=== PATIENT | female | born 1935 | race Caucasian/White ===

== ENCOUNTER → 2019-12-19 | Outpatient (CLI) | payer MEDICARE, BC ==
--- NOTE | 2019-12-19 14:21 | RAD ---
EXAM: Neck sonogram. HISTORY: Neck mass. TECHNIQUE: Sonographic imaging of the neck at the site of palpable concern was performed. COMPARISON: None. FINDINGS: There is a small solid nodule at the site of palpable concern within the base of the right neck measuring 1.6 cm in maximum dimension. There is a prominent adjacent vessel, without convincing internal blood flow. There is isoechoic to fat. This corresponds with the site of palpable concern. IMPRESSION: 1.6 cm solid lesion within the base of the right neck at the site of palpable concern, the appearance of which favors a fat lobule or lipoma. Given suspected artifactual blood flow within this lesion, short-term follow-up with a sonogram in 3 months is recommended confirm stability. Continued clinical follow-up is also recommended. Electronically signed by: Joanne Rowan MD (12/19/2019 2:18 PM) [id number]
== END ==
LOC: US 13:37
PROVIDERS: ATTEND Family Medicine
DX: R22.1 Localized swelling, mass and lump, neck (principal)
CPT/HCPCS: 76536

== ENCOUNTER 2020-08-09 15:45 | Emergency (ER) | payer MEDICARE, BC ==
[~2020-08-09] VITALS: Ht 154.9 cm; Wt 64.0 kg
[2020-08-09] MEDS ORDERED: IOHEXOL 350 MG/ML 100 ML VIAL. IV ONE ×2 (16:45→17:30)
[2020-08-09] MEDS ORDERED: IPRATRPIUM/ALBUTEROL 0.5/2.5MG 3 ML NEBU. NEB ONE (17:00)
[2020-08-09 17:14] LABS: BASO # 0.1 x10^3/uL (0.0-0.2); BASO % 1 % (0-3); EOS # 0.3 x10^3/uL (0.0-0.7); EOS % 3 % (0-3); HEMATOCRIT 33.3 % (36.0-47.0); HEMOGLOBIN 11.2 g/dL (12.0-15.5); LYMPH # 1.8 x10^3/uL (1.0-4.8); LYMPH % 17 % (24-48); MEAN CORPUSCULAR HEMOGLOBIN 29 pg (25-35); MEAN CORPUSCULAR HGB CONC 34 g/dL (31-37); MEAN CORPUSCULAR VOLUME 87 fL (79-100); MONO % 9 % (0-9); NEUT # 7.2 x10^3uL (1.8-7.7); NEUT % 70 % (31-73); PLATELET COUNT 325 x10^3/uL (140-400); RED BLOOD COUNT 3.82 x10^6/uL (3.50-5.40); RED CELL DISTRIBUTION WIDTH 13.8 % (11.5-14.5); WHITE BLOOD COUNT 10.3 x10^3/uL (4.0-11.0)
[2020-08-09 17:41] LABS: ALBUMIN 3.9 g/dL (3.4-5.0); ALBUMIN/GLOBULIN RATIO 1.1 (1.0-1.7); CALCIUM 9.9 mg/dL (8.5-10.1); CREATININE 0.8 mg/dL (0.6-1.0); GFR 68.2; MAGNESIUM 2.3 mg/dL (1.8-2.4); PHOSPHORUS 3.5 mg/dL (2.6-4.7); POTASSIUM 4.7 mmol/L (3.5-5.1); TOTAL BILIRUBIN 0.4 mg/dL (0.2-1.0); TOTAL PROTEIN 7.4 g/dL (6.4-8.2)
--- NOTE | 2020-08-09 19:02 | RAD ---
CTA CHEST INDICATION: HAEMOPTYSIS WITH BRONCHIECTASIS HX Comparison: None. TECHNIQUE: Following the uneventful administration of intravenous contrast, 100 cc Omnipaque 350, axi al CT sections were obtained through the lungs and upper abdomen. Multiplanar reconstructions and MIP images were obtained. PQRS compliance statement: One or more of the following individualized dose reduction techniques were utilized for this examinat ion: 1. Automated exposure control 2. Adjustment of the mA and/or kV according to patient size 3. Use of iterative reconstruction technique FINDINGS: Pulmonary arteries: No evidence of pulmonary thromboembolic disease Lungs and Airways: Bilateral tree-in-bud opacities. Middle lobe and lingular predominant bronchiectas is and volume loss. Scattered endobronchial mucous plugging. Small right Bochdalek hernia. Pleura: The pleural spaces are normal. Heart and Mediastinum: The visualized thyroid is normal in size and attenuation. No axillary or supra clavicular lymphadenopathy. No mediastinal, hilar or retrocrural lymphadenopathy. Cardiomegaly. No pe ricardial effusion. Coronary artery atherosclerotic disease. Atherosclerosis of the thoracic aorta an d branch. Abdomen: Calcified splenic granulomas. Low-attenuation hepatic foci, probably cysts. Bones and Soft Tissues: Degenerative changes of the spine. IMPRESSION: 1. No evidence of pulmonary thromboembolic disease. 2. Bilateral tree-in-bud opacities with middle lobe and lingular predominant bronchiectasis, volume l oss, an endobronchial mucous plugging. Findings are consistent with infectious bronchiolitis, and con sideration should be given to chronic atypical mycobacterial infection. Electronically signed by: Temo Lovell MD (08/09/2020 7:00 PM) [facility]
--- NOTE | 2020-08-09 20:32 | PHYS DOC ---
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 Lyndsay Martines sent her here for evaluation of blood in her sputum that she noticed earlier today x5. Patient states that her sputum is clear with streaks of blood reporting approximately a half a teaspoon total blood was expelled. Patient states she has a long history of bronchiectasis and congestive heart failure with COPD. Patient reports seeing a operations research manager at [facility]. Patient reports wearing a vest device at home that shakes her chest vigorously to assist bringing up respiratory secr etions. Patient also reports she had a CT scan a year ago in which a spot was noticed in her lung and it was recommended that she have a repeat CT in 1 year. Patient denies any new symptoms of chest pain, shortness of breath, fever or chills, numbness or tingling, dizziness or headaches or syncopal episodes. Patient denies any other physical complaints or physical concerns. Patient states that she is only here stating that her physician is worried her sodium might be high as that she is being treated for hyponatremia for the past 2 weeks. Patient denies any other medication changes. (RIGO CLAYTON APRN) Review of Systems Review of Systems 14 body systems of review of systems have been reviewed. See HPI for pertinent positives and negative responses, otherwise all other systems are negative, nonpertinent or noncontributory. (RIGO CLAYTON APRN) Current Medications Current Medications Current Medications Medications (Trade) Dose Ordered Sig/Aidan Start Time Stop Time Status Last Admin Dose Admin Albuterol/ Ipratropium (Duoneb) 3 ml 1X ONCE 08/09/20 17:00 08/09/20 17:01 DC 08/09/20 17:24 3 ML Iohexol (Omnipaque 350 Mg/ml) 100 ml 1X ONCE 08/09/20 17:30 08/09/20 17:31 DC (RIGO CLAYTNO APRN) Allergies Allergies Allergies Coded Allergies Type Severity Reaction Last Updated Verified Sulfa (Sulfonamide Antibiotics) Allergy Intermediate 08/09/20 Yes scopolamine Allergy Unknown 08/09/20 Yes (RIGO CLAYTON APRN) Physical Exam Physical Exam Constitutional: Well developed, well nourished, no acute distress, non-toxic appearance. 85-year-old female in no apparent distress. HENT: Normocephalic, atraumatic, bilateral external ears normal, oropharynx moist, no oral exudates, nose normal. Oropharynx moist, pink, no postnasal drip appreciated, no blood in the oral cavity appreciated. Bilateral TMs within normal limits. No trauma appreciated. Eyes: Conjunctiva normal, no discharge. Neck: Normal range of motion. Cardiovascular:Heart rate regular rhythm, no murmur. Lungs & Thorax: Bilateral breath sounds clear to auscultation bilateral inspiratory expiratory wheezing to auscultation. Abdomen: Bowel sounds normal, soft, no tenderness, no masses, no pulsatile masses. Skin: Warm, dry, no erythema, no rash. Back: No tenderness, no CVA tenderness. Extremities: No tenderness, no cyanosis, no clubbing, ROM intact, no edema. Neurologic: Alert and oriented X 3, normal motor function, normal sensory function, no focal deficits noted. Psychologic: Affect normal, judgement normal, mood normal. (RIGO CLAYTON APRN) Current Patient Data Vital Signs Vital Signs Date Time Temp Pulse Resp B/P (MAP) Pulse Ox O2 Delivery O2 Flow Rate FiO2 08/09/20 18:00 57 16 185/59 (101) 98 Room Air 08/09/20 15:51 98.6 Lab Results Laboratory Tests Test 08/09/20 16:36 White Blood Count 10.3 x10^3/uL (4.0-11.0) Red Blood Count 3.82 x10^6/uL (3.50-5.40) Hemoglobin 11.2 g/dL (12.0-15.5) L Hematocrit 33.3 % (36.0-47.0) L Mean Corpuscular Volume 87 fL (79-100) Mean Corpuscular Hemoglobin 29 pg (25-35) Mean Corpuscular Hemoglobin Concent 34 g/dL (31-37) Red Cell Distribution Width 13.8 % (11.5-14.5) Platelet Count 325 x10^3/uL (140-400) Neutrophils (%) (Auto) 70 % (31-73) Lymphocytes (%) (Auto) 17 % (24-48) L Monocytes (%) (Auto) 9 % (0-9) Eosinophils (%) (Auto) 3 % (0-3) Basophils (%) (Auto) 1 % (0-3) Neutrophils # (Auto) 7.2 x10^3uL (1.8-7.7) Lymphocytes # (Auto) 1.8 x10^3/uL (1.0-4.8) Monocytes # (Auto) 1.0 x10^3/uL (0.0-1.1) Eosinophils # (Auto) 0.3 x10^3/uL (0.0-0.7) Basophils # (Auto) 0.1 x10^3/uL (0.0-0.2) Sodium Level 133 mmol/L (136-145) L Potassium Level 4.7 mmol/L (3.5-5.1) Chloride Level 100 mmol/L (98-107) Carbon Dioxide Level 24 mmol/L (21-32) Anion Gap 9 (6-14) Blood Urea Nitrogen 19 mg/dL (7-20) Creatinine 0.8 mg/dL (0.6-1.0) Estimated GFR (Cockcroft-Gault) 68.2 BUN/Creatinine Ratio 24 (6-20) H Glucose Level 96 mg/dL (70-99) Calcium Level 9.9 mg/dL (8.5-10.1) Phosphorus Level 3.5 mg/dL (2.6-4.7) Magnesium Level 2.3 mg/dL (1.8-2.4) Total Bilirubin 0.4 mg/dL (0.2-1.0) Aspartate Amino Transferase (AST) 18 U/L (15-37) Alanine Aminotransferase (ALT) 21 U/L (14-59) Alkaline Phosphatase 119 U/L (46-116) H Troponin I Quantitative < 0.017 ng/mL (0-0.055) CI-Btl-F-Type Natriuretic Peptide 710 pg/mL (0-449) H Total Protein 7.4 g/dL (6.4-8.2) Albumin 3.9 g/dL (3.4-5.0) Albumin/Globulin Ratio 1.1 (1.0-1.7) (RIGO CLAYTON APRN) EKG EKG EKG performed at 1716 by ED nursing staff, shows a normal sinus rhythm with a left axis deviation and a left bundle branch block, no STEMI appreciated, ruled out by SGARBOSSA criteria, intervertebral 0.184, QTc interval 0.423, no ACS, no acute ischemia appreciated, EKG interpreted by ED attending physician Dr. Romo. (RIGO CLAYTON APRN) Radiology/Procedures Radiology/Procedures PATIENT: REDD JENNINGS AACCOUNT: [id number] : 1935 LOCATION: ER AGE: 85 SEX: F EXAM STATUS: REG ER ORD. PHYSICIAN: RIGO CLAYTON APRN REASON: HAEMOPTYSIS WITH BRONCHIECTASIS HX Omni 350 100cc PROCEDURE: CT ANGIOGRAPHY CHEST CTA CHEST INDICATION: HAEMOPTYSIS WITH BRONCHIECTASIS HX Comparison: None. TECHNIQUE: Following the uneventful administration of intravenous contrast, 100 cc Omnipaque 350, axial CT sections were obtained through the lungs and upper abdomen. Multiplanar reconstructions and MIP images were obtained. PQRS compliance statement: One or more of the following individualized dose reduction techniques were utilized for this examination: 1. Automated exposure control 2. Adjustment of the mA and/or kV according to patient size 3. Use of iterative reconstruction technique FINDINGS: Pulmonary arteries: No evidence of pulmonary thromboembolic disease Lungs and Airways: Bilateral tree-in-bud opacities. Middle lobe and lingular predominant bronchiectasis and volume loss. Scattered endobronchial mucous plugging. Small right Bochdalek hernia. Pleura: The pleural spaces are normal. Heart and Mediastinum: The visualized thyroid is normal in size and attenuation. No axillary or supraclavicular lymphadenopathy. No mediastinal, hilar or retrocrural lymphadenopathy. Cardiomegaly. No pericardial effusion. Coronary artery atherosclerotic disease. Atherosclerosis of the thoracic aorta and branch. Abdomen: Calcified splenic granulomas. Low-attenuation hepatic foci, probably cysts. Bones and Soft Tissues: Degenerative changes of the spine. IMPRESSION: 1. No evidence of pulmonary thromboembolic disease. 2. Bilateral tree-in-bud opacities with middle lobe and lingular predominant bronchiectasis, volume loss, an endobronchial mucous plugging. Findings are consistent with infectious bronchiolitis, and consideration should be given to chronic atypical mycobacterial infection. Electronically signed by: Mercedes Lovell MD (08/09/2020 7:00 PM) [facility] DICTATED AND SIGNED BY: MERCEDES LOVELL MD DATE: 08/09/201852 CC: RIGO CLAYTON APRN; BASSAM ROMO DO; ANDRESLYNDSAY ~MTH0 0 (RIGO CLAYTON APRN) Heart Score C/O Chest Pain: No Risk Factors: Risk Factors: DM, Current or recent (<one month) smoker, HTN, HLP, family history of CAD, obesity. Risk Scores: Risk Factors: DM, Current or recent (<one month) smoker, HTN, HLP, family history of CAD, obesity. (RIGO CLAYTON APRN) Course & Med Decision Making Course & Med Decision Making Pertinent Labs and Imaging studies reviewed. (See chart for details) 85-year-old female, vital signs reviewed, presents emergency department reporting noticing blood in her sputum today. Patient's physical examination was consistent with her history of bronchiectasis and COPD. Related to andrey samuels's chief complaint of seen a spot in her lung per CT last year, will order CT angio chest. EKG, cardiopulmonary work-up. Patient is in no respiratory distress however she does have expiratory expiratory wheezes, patient states she has this all the time and usually feels better after a breathing treatment. Patient states that she does not feel as if she needs a breathing treatment however states that she would accept it if ordered. An RAHEEL treatment was ordered. CT angio chest consistent with patient's history of bronchiectasis. Patient is being closely followed and treated at home with a vest device to assist with bronchial secretion plugs, and taking Zithromax every other day for the past year. Upon reevaluation of the patient, patient states that she has coughed up sputum several times it has been clear and has not noticed any blood in it. Patient states that she does not feel ill and states she would have not come to the emergency department had her doctor not been concerned of hypernatremia. D iscussed with patient's labs, patient is not hyponatremic, patient states she is relieved and wishes to go home now. Discussed with patient strict return to ER precautions related to blood in sputum, patient states that she does get blood in her sputum intermittently and associates this with her long history of bronchiectasis and COPD. Patient states she does not feel as if she is in a COPD exacerbation, and does not feel that she is ill enough to warrant an admission to the hospital. Discussed with patient strict follow-up with primary care physician Wednesday for reevaluation of her hemoptysis. Patient remained nontoxic and in no distress during her ER stay. The patient feels comfortable going home. Patient is stable for discharge. Patient gave verbal understanding of discharge home instructions, follow-up with PCP on Wednesday, return ER precautions or concerns, patient was discharged home without incident. (RIGO CLAYTON APRN) Course & Med Decision Making I oversaw on the above date of service of this patient. This patient was evaluated, examined, treated, and dispositioned from the emergency department by the mid-level practitioner. Although I was working at the time and available for consultation, no assistance was requested and I did not see or immediately direct the care of this patient. I reviewed note and agree to findings, plan of care, and disposition as stated. Electronically signed, Bassam Romo DO (BASSAM ROMO DO) Shabana Disclaimer Dragwendy Disclaimer This electronic medical record was generated, in whole or in part, using a voice recognition dictation system. (RIGO CLAYTON APRN) Departure Departure: Impression: Primary Impression: Bronchiectasis Additional Impression: Cough with hemoptysis Disposition: HOME / SELF CARE / HOMELESS Condition: GOOD Referrals: LYNDSAY MARTINES (PCP) Additional Instructions: You were seen today in the emergency department for coughing up sputum with a small amount of blood. Your primary care physician was worried you may have a high sodium level as she has been treating your low sodium level at home. A CT angio chest was performed to evaluate your bronchiectasis and congestive heart failure history. Your lab work did not show any concerning findings, your CT imaging of your chest did not show any findings that were concerning related to your long history of COPD and bronchiectasis. I discussed with you admission to the hospital, you and I made a joint decision to defer admission to the hospital related to you feeling better, you are not running a fever, you do not feel any more ill than normal, you did cough up some sputum during your ER stay that did not have any blood in it. I suspect this may be an ongoing problem related to your chronic bronchiectasis and COPD. Please continue taking your home medications as directed by your primary care provider and your operations research manager, please follow-up with your Dr. Martines this Wednesday. Please return immediately to the emergency department for worsening symptoms or other concerns. EMERGENCY DEPARTMENT GENERAL DISCHARGE INSTRUCTIONS Thank you for coming to [facility] (ED) today and trusting us with you care. We trust that you had a positivie experience in our Emergency Department. If you wish to speak to the department management, you may call the director at [phone]. YOUR FOLLOW UP INSTRUCTIONS ARE FOLLOWS: 1. Do you have a private Doctor? If you do not have a private doctor, please ask for a resource list of physicians or clinics that may be able to assist you with follow up care. 2. The Emergency Physician has interpreted your x-rays. The X-Ray specialist will also review them. If there is a change in the findings, you will be notified in 48 hours when at all possible. 3. A lab test or culture has been done, your results will be reviewed and you will be notified if you need a change in treatment. ADDITIONAL INSTRUCTIONS AND INFORMATION: 1. Your care today has been supervised by a physician who is specially trained in emergency care. Many problems require more than one evaluation for a complete diagnosis and treatment. We recommend that you schedule your follow up appointment as recommended to ensure complete treatment of you illness or injury. If you are unable to obtain follow up care and continue to have a problem, or if your condition worsens, we recommend that you return to the ED. 2. We are not able to safely determine your condition over the phone nor are we able to give sound medical advice over the phone. For these safety reasons, if you call for medical advice we will ask you to come to the ED for further evaluation. 3. If you have any questions regarding these discharge instructions please call the ED at [phone]. SAFETY INFORMATION: In the interest of safety, wellness, and injury prevention; we encourage you to wear your sealbelt, if you smoke; quite smoking, and we encourage family to use a protective helmet for bicycling and other sporting events that present an increased risk for head injury. IF YOUR SYMPTOMS WORSEN OR NEW SYMPTOMS DEVELOP, OR YOU HAVE CONCERNS ABOUT YOUR CONDITION; OR IF YOUR CONDITION WORSENS WHILE YOU ARE WAITING FOR YOUR FOLLOW UP APPOINTMENT; EITHER CONTACT YOUR PRIMARY CARE DOCTOR, THE PHYSICIAN WHOSE NAME AND NUMBER YOU WERE GIVEN, OR RETURN TO THE ED IMMEDIATELY. Problem Qualifiers Primary Impression: Bronchiectasis Bronchiectasis type: uncomplicated Qualified Codes: J47.9 - Bronchi ectasis, uncomplicated RIGO CLAYTON APRN Aug 09, 2020 20:32 BASSAM ROMO DO Aug 10, 2020 08:37
[2020-08-09 20:40] VITALS: BP 158/63
--- NOTE | 2020-08-09 22:22 | EKG ---
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
== END 2020-08-09 20:40 | disposition home or self-care (01) ==
LOC: ER 15:45
DX: J47.9 Bronchiectasis, uncomplicated (principal); R04.2 Hemoptysis; Z88.2 Allergy status to sulfonamides
CPT/HCPCS: 36415; 71275; 80053; 83735; 83880; 84100; 84484; 85025; 93005; 94640; 94760; 99285; Q9967

== ENCOUNTER → 2020-08-15 | Outpatient (CLI) | payer MEDICARE, BC ==
[2020-08-09 20:40] VITALS: BP 158/63
--- NOTE | 2020-08-15 12:23 | RAD ---
EXAM: DUAL ENERGY X-RAY ABSORPTIOMETRY (DEXA). HISTORY: Postmenopausal screening. FINDINGS: The lowest measured T-score is -3.0 in the lumbar spine, based on a bone mineral density of 0.8-0 g/cm^2. Refer to the worksheets for full detail. No comparison examinations are available. IMPRESSION: 1. Osteoporosis. Bone mineral density yields a T-score of -2.5 or less. Fracture risk is high. 2. FRAX report: Not calculated. METHODOLOGY: Dual energy x-ray absorptiometry was performed to measure bone mineral density. The foll owing analysis is based on the 2019 Official Positions of the International Society for Clinical Dens itometry: Measurements of the hips and the average of L1-L4 are preferred. When the spine and/or hip cannot be feasibly measured or interpreted, or in the setting of hyperparathyroidism, distal radial bone minera l density may be measured. The lumbar spine T-score is based on the average bone mineral density of L1-L4. In the setting of art ifact or anatomic abnormality, some lumbar levels may be excluded, and the remaining levels used for calculation. A single lumbar level is not used for diagnosis, and if only a single level is available for assessment, another anatomic site will be used to assign a diagnosis. The hip T-score is based on the bone mineral density measurement of the femoral neck or total proxima l femur of either side, whichever is lowest. Bilateral mean values are not used for diagnosis. The forearm T-score is derived from 33% of the distal radius of the nondominant forearm. Electronically signed by: Joanne Rowan MD (08/15/2020 12:21 PM) [id number]
== END ==
LOC: DXRAD 11:27
PROVIDERS: ATTEND Family Medicine
DX: M81.0 Age-related osteoporosis without current pathological fracture (principal); M85.89 Other specified disorders of bone density and structure, multiple sites
CPT/HCPCS: 77080

== ENCOUNTER → 2020-12-31 | Outpatient (CLI) | payer MEDICARE, BC ==
--- NOTE | 2020-12-31 10:42 | RAD ---
EXAM: Abdomen sonogram. HISTORY: Pain. Cholelithiasis. TECHNIQUE: Sonographic imaging of the abdomen was performed. COMPARISON: None. FINDINGS: The liver is normal in size. There is a 1.6 cm nonvascular hypoechoic lesion with slight il l-defined margins within the left hepatic lobe. This demonstrates slight posterior through transmissi on. There is a single large stone within the gallbladder. The gallbladder is distended. The common bi le duct is dilated to a caliber of 10 mm. There is a 1.1 cm simple appearing cyst within the right ki dney. There is no hydronephrosis. The pancreas and inferior vena cava are unremarkable. IMPRESSION: 1. Cholelithiasis. There is gallbladder distention and biliary ductal dilatation. The possibility of choledocholithiasis is not excluded. There is no gallbladder wall thickening to suggest cholecystitis . Correlate with symptomatology. 2. 1.6 cm hypoechoic lesion within the liver. This demonstrates no internal blood flow and slight pos terior through transmission, favoring a complicated cyst rather than solid lesion. If there are risk factors for liver neoplasm, this can be better characterized with a liver protocol MRI or CT. 3. Small simple appearing right renal cyst. Follow-up is not routinely performed for simple cysts. Electronically signed by: Joanne Rowan MD (12/31/2020 10:40 AM) [id number]
== END ==
LOC: US 09:44
PROVIDERS: ATTEND Family Medicine
DX: K80.20 Calculus of gallbladder without cholecystitis without obstruction (principal); K82.8 Other specified diseases of gallbladder; N28.1 Cyst of kidney, acquired
CPT/HCPCS: 76705